=== PATIENT | female | born 1950 | race Caucasian/White ===

== ENCOUNTER 2021-01-25 13:23 | Emergency (ER) | payer MEDICARE, BC ==
--- NOTE | 2021-01-25 13:55 | EDM.PDOC ---
ED HPI GENERAL MEDICAL PROBLEM - General Chief Complaint: Respiratory Problem Stated Complaint: COUGH CONGESTION Time Seen by Provider: 01/25/21 13:45 - History of Present Illness INITIAL COMMENTS - FREE TEXT/NARRATIVE: History of present illness: [] The patient's been coughing and short of breath for 2 weeks. It is progressively worse. 2 weeks ago she was seen by family doctor and told she had a upper respiratory infection. 1 week ago she was seen again and told she might benefit from steroids. She took a few days of prednisone and got better at the beginning of those few days. She is off for least 2 days now and getting worse again coughing up green phlegm and short of breath at rest. She has sinus congestion a lot of pressure in her sinuses and her sinuses feel completely full. There is no other systemic signs of illness. Review of systems: As per history of present illness and below otherwise all systems reviewed and negative. Past medical history: As per history of present illness and as reviewed below otherwise noncontributory. Surgical history: As per history of present illness and as reviewed below otherwise noncontributory. Social history: No reported history of drug or alcohol abuse. Family history: As per history of present illness and as reviewed below otherwise noncontributory. Physical exam: Constitutional - well developed, well-nourished and in no acute distress HEENT -tender frontal and maxillary sinuses-normocephalic, no evidence of trauma - external nose and mouth normal - no mass in neck and no JVD - mucosae moist EYES - full EOM, PERRL, no icterus - no evidence of inflammation, injection, or drainage Respiratory - no respiratory distress, equal bilateral expansion, lungs clear to auscultation and no abnormal lung sounds Cardiovascular - Regular Rhythm with S1 and S2 appreciated and no murmur, gallop or rub. GI - abdomen soft without distension or organomegaly - normal bowel sounds - no guard or rebound Musculoskeletal no gross deformity of long bones or joints - no tenderness, swelling or edema Neurologic - Alert and oriented times four - CN II-XII grossly intact - motor sensory and coordination symmetrically normal Psychiatric - appropriate mood and affect with normal thought content Hematologic - No petechiae or purpura - mucosa appropriate color and sclera not pale - normal nail bed color and refill Integument - no rash or evidence of trauma - normal turgor Diagnostics: [] Therapeutics: [] Impression: [] Plan: [] Definitive disposition and diagnosis as appropriate pending reevaluation and review of above. - Related Data Allergies Allergy/AdvReac Type Severity Reaction Status Date / Time Sulfa (Sulfonamide Allergy Hives Verified 12/13/14 15:38 MDT Antibiotics) Home Meds: Home Meds Amoxicillin/Clavulanate K [Augmentin 875-125 MG] 1 tab PO Q12HR 10 Days #20 tablet 01/25/21 [Rx] Past Medical History - Past Health History Medical/Surgical History: Denies Medical/Surgical History ED ROS GENERAL - Review of Systems Review Of Systems: Comprehensive ROS is negative, except as noted in HPI. ED EXAM, GENERAL - Physical Exam Exam: See Below Free Text/Narrative:: My physical exam as in the HPI Course - Vital Signs Text/Narrative:: 1414 hrs. the patient's x-ray is unremarkable to me. Her sinusitis has bothered her for 2 weeks so I will put her on antibiotics. Last Recorded V/S: Last Vital Signs Temp 36.4 C 01/25/21 13:53 Pulse 74 01/25/21 13:53 Resp BP 118/72 01/25/21 13:53 Pulse Ox 97 01/25/21 13:53 - Orders/Labs/Meds Orders: Active Orders 24 hr Category Date Time Status Chest 1V Frontal [CR] Stat Exams 01/25/21 13:53 Taken Departure - Departure Time of Disposition: 14:14 Disposition: Home, Self-Care 01 Condition: Good Clinical Impression: Sinusitis, acute - Discharge Information Instructions: Sinusitis, Adult, [id number] Referrals: PCP,Not In Area [Primary Care Provider] - Forms: ED Department Discharge Additional Instructions: Since you been sick for 2 weeks its likely you may improve with an antibiotic. There may be a bacterial overgrowth in your sinus. [facility] - [facility] [address] [place] [id number] [facility] [address] [place] [address] The following information is given to patients seen in the emergency department who are being discharged to home. This information is to outline your options for follow-up care. We provide all patients seen in our emergency department with a follow-up referral. The need for follow-up, as well as the timing and circumstances, are variable d epending upon the specifics of your emergency department visit. If you don't have a primary care physician on staff, we will provide you with a referral. We always advise you to contact your personal physician following an emergency department visit to inform them of the circumstance of the visit and for follow-up with them and/or the need for any referrals to a consulting specialist. The emergency department will also refer you to a specialist when appropriate. This referral assures that you have the opportunity for follow-up care with a specialist. All of these measure are taken in an effort to provide you with optimal care, which includes your follow-up. Under all circumstances we always encourage you to contact your private physician who remains a resource for coordinating your care. When calling for follow-up care, please make the office aware that this follow-up is from your recent emergency room visit. If for any reason you are refused follow-up, please contact the [facility] Emergency Department at and asked to speak to the emergency department charge nurse. Sepsis Event Note (ED) - Focused Exam Vital Signs: Vital Signs Temp Pulse BP Pulse Ox 01/25/21 13:53 36.4 C 74 118/72 97 - My Orders Last 24 Hours: My Active Orders 01/25/21 13:53 Chest 1V Frontal [CR] Stat - Assessment/Plan Last 24 Hours: My Active Orders 01/25/21 13:53 Chest 1V Frontal [CR] Stat
[2021-01-25 14:05] VITALS: BP 118/72; PULSE 74
--- NOTE | 2021-01-25 14:21 | CR ---
HISTORY: Cough. TECHNIQUE: One view of the chest. COMPARISON: No prior. FINDINGS: Cardiac size and pulmonary vasculature are within normal limits. There is no acute lung infiltrate or pulmonary edema. No pneumothorax or pleural effusion. No acute bony abnormality. IMPRESSION: No acute disease. Dictated by Marcelino Haider MD @ 01/25/2021 2:20:[address] Marcelino Haider @ Jan 25 2021 2:20PM
== END 2021-01-25 14:31 | disposition home or self-care (01) ==
LOC: MW.ED 13:23
DX: J01.90 Acute sinusitis, unspecified (principal); Z88.2 Allergy status to sulfonamides
CPT/HCPCS: 71045; 71045-26; 99283; 99284-25